=== PATIENT | male | born 1985 | race Caucasian/White ===

== ENCOUNTER 2021-05-25 21:18 | Emergency (ER) | payer SELFPAY ==
[2021-05-25] MEDS ORDERED: VENTOLIN HFA IN18 GM INH ×3 (21:44→23:04)
[2021-05-25 23:04] LABS: INFLUENZA A NAA NEGATIVE (NEGATIVE)
[2021-05-25 23:06] LABS: CORONAVIRUS 2019 SARS-COV-2 POSITIVE (NEGATIVE)
== END 2021-05-25 23:11 | disposition home or self-care (01) ==
LOC: FER 21:18
PROVIDERS: Nurse Practitioner Family
DX: U07.1 COVID-19 (principal); F17.210 Nicotine dependence, cigarettes, uncomplicated
CPT/HCPCS: 71045; U0002